=== PATIENT | female | born 1965 | race Caucasian/White ===

== ENCOUNTER → 2016-12-21 | Outpatient (CLI) | payer MEDICAID | END | disposition home or self-care (01) | LOC: CFH 13:43 | PROVIDERS: ATTEND Nurse Practitioner Family | DX: Z12.31 Encounter for screening mammogram for malignant neoplasm of breast (principal); R92.2 Inconclusive mammogram | CPT/HCPCS: 76377; 76642; G0202 ==

== ENCOUNTER 2019-01-11 07:36 | Outpatient (CLI) | payer OTHER | END 2019-01-11 23:59 | disposition home or self-care (01) | LOC: CFH 07:36 | PROVIDERS: ATTEND Nurse Practitioner Family | DX: Z12.31 Encounter for screening mammogram for malignant neoplasm of breast (principal) | CPT/HCPCS: 76641; 77063; 77067 ==

== ENCOUNTER → 2020-10-16 | Outpatient (CLI) | payer OTHER | END | disposition home or self-care (01) | LOC: CFH 12:12 | PROVIDERS: ATTEND Nurse Practitioner Family | DX: Z12.31 Encounter for screening mammogram for malignant neoplasm of breast (principal) | CPT/HCPCS: 77063; 77067 ==